=== PATIENT | male | born 1975 | race Caucasian/White ===

== ENCOUNTER 2021-06-23 21:20 | Emergency (ER) | payer BC ==
--- NOTE | 2021-06-23 21:48 | EDM.PDOC ---
ED HPI GENERAL MEDICAL PROBLEM - General Chief Complaint: Chest Pain Stated Complaint: INTERMITTENT CHEST PAIN/SOB/HEART RACING Time Seen by Provider: 06/23/21 21:46 Source of Information: Reports: Patient History Limitations: Reports: No Limitations - History of Present Illness INITIAL COMMENTS - FREE TEXT/NARRATIVE: 46-year-old male presents to the ED with recurrent bouts of central chest pressure discomfort radiating up into his anterior throat off and on since May 21. Tonight it happened after work when he got home. He states he became aware of feeling mildly short of breath with a fluttery feeling in his chest and abdomen with pressure in his central chest radiating up into his throat. Associated dizziness lightheadedness and he had to hang onto the fridge as he was not sure that he was not going to pass out. The symptoms come and go over the last 45 minutes and now he feels pretty well back to normal. ECG done by the triage nurse reveals sinus rhythm at 88/min with frequent supraventricular beats combination of PJCs and PACs. He had this on examination in the ED as well. However he no longer feels the central chest discomfort shortness of breath or feeling of racing heart in his neck. Of note he is a never smoker. Very uses very little caffeinated products does not drink coffee. Has a Mountain Dew once a day on average. Denies use of any street drugs. Alcohol is very rare use as well. Onset Date: 06/21/21 (Event occurred 2 days ago and lasted for short duration. Second event occurred tonight and lasted for about 45 minutes to 50 minutes.) Duration: Minutes:, Intermittent (At time of exam he feels back to normal), Waxing/Waning, Other (Is better) Location: Reports: Chest (Chest discomfort rating up into the anterior throat and neck. So she with feeling dizzy lightheaded and mildly short of breath.) Quality: Reports: Other (Central chest discomfort described as a pressure ache. Associated shortness of breath and dizzy feeling.) Severity: Moderate Improves with: Reports: Other (Is come and go.) Worsens with: Reports: None Context: Reports: Other (Times he was sitting in his easy chair with his iPad on his abdomen when these events started both Monday and again ). Denies: Activity, Exercise, Lifting, Sick Contact, Trauma Associated Symptoms: Reports: Chest Pain, Diaphoresis, Shortness of Breath, Weakness, Other (Dizziness and feeling of near syncope). Denies: Confusion, Cough (Chest discomfort rating up into her throat and neck), cough w sputum, Fever/Chills, Headaches, Loss of Appetite, Nausea/Vomiting (Did have some diaphoresis with the spell that occurred tonight.), Rash, Seizure Treatments KENNEL HAND: Reports: Other (see below) (None.) Middle Chest Pain Score (Numeric/FACES): 6 - Related Data Allergies Allergy/AdvReac Type Severity Reaction Status Date / Time No Known Allergies Allergy Verified 06/23/21 21:43 Home Meds: Home Meds Levothyroxine [Synthroid] 100 mcg PO ACBREAKFAST #60 tab 06/23/21 [Rx] Past Medical History Cardiovascular History: Reports: Other (See Below) (He has hypertriglyceridemia and is on fenofibrate tablets twice daily and omega-3. Apparently his triglycerides came down from 1000 to around 200.) Social & Family History - Tobacco Use Tobacco Use Status *Q: Never Tobacco User - Living Situation & Occupation Living situation: Reports: Occupation: Employed ED ROS GENERAL - Review of Systems Review Of Systems: See Below Constitutional: Reports: Decreased Appetite (Feel like eating any supper tonight after he got home from work). Denies: Fever, Chills, Malaise, Weakness, Fatigue, Weight Loss HEENT: Reports: No Symptoms Respiratory: Reports: Shortness of Breath. Denies: Wheezing, Pleuritic Chest Pain, Cough, Sputum Cardiovascular: Reports: Chest Pain (Chest discomfort rating up into his throat associate with feeling of his heart racing tonight.), Lightheadedness (Lightheaded and dizzy like he might pass out transiently), Palpitations (Aware of palpitations or fine flutter and is neck when he tried to palpate his carotid arteries tonight.). Denies: Blood Pressure Problem, Claudication, Dyspnea on Exertion, Orthopnea Endocrine: Reports: No Symptoms GI/Abdominal: Reports: No Symptoms : Reports: No Symptoms Musculoskeletal: Reports: No Symptoms Skin: Reports: No Symptoms Neurological: Reports: No Symptoms Psychiatric: Reports: No Symptoms Hematologic/Lymphatic: Reports: No Symptoms Immunologic: Reports: No Symptoms ED EXAM, GENERAL - Physical Exam Exam: See Below Exam Limited By: No Limitations General Appearance: Alert, WD/WN, No Apparent Distress, Other (Temperature is 36.6 degrees. Heart rate was 103 and irregularly irregular with frequent PACs and PJCs on the monitor. Respiratory is 14 with O2 sats of 97% room air. BP is 157/86 initially. It is currently 131/92.) Eye Exam: Bilateral Eye: Normal Inspection (Blepharal pallor or scleral icterus), PERRL Throat/Mouth: Normal Inspection, Normal Lips, Normal Teeth, Normal Oropharynx Head: Atraumatic, Normocephalic Neck: Normal Inspection, Supple, Non-Tender, Full Range of Motion. No: Lymphadenopathy (L), Lymphadenopathy (R), Thyromegaly Respiratory/Chest: No Respiratory Distress, Lungs Clear, Normal Breath Sounds, No Accessory Muscle Use Cardiovascular: Normal Peripheral Pulses, No Edema, No Gallop, No Murmur, No Rub, Irregularly Irregular (Ravi premature atrial contractions and PJCs.). No: Regular Rate, Rhythm Peripheral Pulses: 3+: Carotid (L), Carotid (R), Posterior Tibial (L), Posterior Tibial (R), Dorsalis Pedis (L), Dorsalis Pedis (R) GI/Abdominal: Normal Bowel Sounds, Soft, Non-Tender, No Organomegaly, No Abnormal Bruit, No Mass, Pelvis Stable, Other (Surgical scars) (Male) Exam: No Hernia Back Exam: Normal Inspection, Full Range of Motion. No: CVA Tenderness (L), CVA Tenderness (R) Extremities: Normal Inspection, Normal Range of Motion, Non-Tender, No Pedal Edema Neurological: Alert, Oriented, CN II-XII Intact, Normal Cognition Psychiatric: Normal Affect, Normal Mood Skin Exam: Warm, Dry, Intact, Normal Color, No Rash #1 Interpretation EKG Date: 06/23/21 Time: 21:31 Rhythm: NSR Rate (Beats/Min): 88 (Current ectopic beat is a PJCs and PACs) [place]: Normal P-Wave: Present (Mildly prominent in lead II consider left atrial hypertrophy) QRS: Other (Early R wave transition V2 consider right ventricular perjury versus septal hypertrophy pattern) ST-T: Other (Diffuse early repolarization pattern) QT: Prolonged (Mildly prolonged) EKG Interpretation Comments: Borderline ECG Course - Vital Signs Last Recorded V/S: Last Vital Signs Temp 36.6 C 06/23/21 21:39 Pulse 103 H 06/23/21 21:39 Resp 14 06/23/21 21:39 BP 157/86 H 06/23/21 21:39 Pulse Ox 97 06/23/21 21:39 - Orders/Labs/Meds Orders: Active Orders 24 hr Category Date Time Status Chest 1V Frontal [CR] Stat Exams 06/23/21 22:04 Taken Labs: Laboratory Tests 06/23/21 06/23/21 06/23/21 Range/Units 22:17 22:17 22:17 WBC 8.93 (4.23-9.07) K/mm3 RBC 4.84 (4.63-6.08) M/mm3 Hgb 15.0 (13.7-17.5) gm/dl Hct 43.4 (40.1-51.0) % MCV 89.7 (79.0-92.2) fl MCH 31.0 (25.7-32.2) pg MCHC 34.6 (32.2-35.5) g/dl RDW Std Deviation 38.8 (35.1-43.9) fL Plt Count 205 (163-337) K/mm3 MPV 9.3 L (9.4-12.3) fl Neut % (Auto) 59.9 (34.0-67.9) % Lymph % (Auto) 27.2 (21.8-53.1) % Luna % (Auto) 7.2 (5.3-12.2) % Eos % (Auto) 4.9 (0.8-7.0) Baso % (Auto) 0.2 (0.1-1.2) % Neut # (Auto) 5.35 (1.78-5.38) K/mm3 Lymph # (Auto) 2.43 (1.32-3.57) K/mm3 Luna # (Auto) 0.64 (0.30-0.82) K/mm3 Eos # (Auto) 0.44 (0.04-0.54) K/mm3 Baso # (Auto) 0.02 (0.01-0.08) K/mm3 PT 10.9 (9.7-12.0) SECONDS INR 1.02 APTT 24.6 (21.7-31.4) SECONDS Sodium 141 (136-145) mEq/L Potassium 4.2 (3.5-5.1) mEq/L Chloride 106 (98-107) mEq/L Carbon Dioxide 29 (21-32) mEq/L Anion Gap 10.2 (5-15) BUN 19 H (7-18) mg/dL Creatinine 1.3 (0.7-1.3) mg/dL Est Cr Clr Drug Dosing TNP Estimated GFR (MDRD) 59 (>60) mL/min BUN/Creatinine Ratio 14.6 (14-18) Glucose 105 H (70-99) mg/dL Calcium 8.4 L (8.5-10.1) mg/dL Magnesium 2.0 (1.8-2.4) mg/dL Total Bilirubin 0.4 (0.2-1.0) mg/dL AST 44 H (15-37) U/L ALT 106 H (16-63) U/L Alkaline Phosphatase 41 L (46-116) U/L CK-MB (CK-2) 1.3 (0-3.6) ng/ml Troponin I < 0.017 (0.00-0.056) ng/mL C-Reactive Protein <0.2 (<1.0) mg/dL NT-Pro-B Natriuret Pep (0-125) pg/mL Total Protein 6.6 (6.4-8.2) g/dl Albumin 3.9 (3.4-5.0) g/dl Globulin 2.7 gm/dL Albumin/Globulin Ratio 1.4 (1-2) TSH 3rd Generation 6.078 H (0.358-3.74) uIU/mL 06/23/21 Range/Units 22:17 WBC (4.23-9.07) K/mm3 RBC (4.63-6.08) M/mm3 Hgb (13.7-17.5) gm/dl Hct (40.1-51.0) % MCV (79.0-92.2) fl MCH (25.7-32.2) pg MCHC (32.2-35.5) g/dl RDW Std Deviation (35.1-43.9) fL Plt Count (163-337) K/mm3 MPV (9.4-12.3) fl Neut % (Auto) (34.0-67.9) % Lymph % (Auto) (21.8-53.1) % Luna % (Auto) (5.3-12.2) % Eos % (Auto) (0.8-7.0) Baso % (Auto) (0.1-1.2) % Neut # (Auto) (1.78-5.38) K/mm3 Lymph # (Auto) (1.32-3.57) K/mm3 Luna # (Auto) (0.30-0.82) K/mm3 Eos # (Auto) (0.04-0.54) K/mm3 Baso # (Auto) (0.01-0.08) K/mm3 PT (9.7-12.0) SECONDS INR APTT (21.7-31.4) SECONDS Sodium (136-145) mEq/L Potassium (3.5-5.1) mEq/L Chloride (98-107) mEq/L Carbon Dioxide (21-32) mEq/L Anion Gap (5-15) BUN (7-18) mg/dL Creatinine (0.7-1.3) mg/dL Est Cr Clr Drug Dosing Estimated GFR (MDRD) (>60) mL/min BUN/Creatinine Ratio (14-18) Glucose (70-99) mg/dL Calcium (8.5-10.1) mg/dL Magnesium (1.8-2.4) mg/dL Total Bilirubin (0.2-1.0) mg/dL AST (15-37) U/L ALT (16-63) U/L Alkaline Phosphatase (46-116) U/L CK-MB (CK-2) (0-3.6) ng/ml Troponin I (0.00-0.056) ng/mL C-Reactive Protein (<1.0) mg/dL NT-Pro-B Natriuret Pep 231 H (0-125) pg/mL Total Protein (6.4-8.2) g/dl Albumin (3.4-5.0) g/dl Globulin gm/dL Albumin/Globulin Ratio (1-2) TSH 3rd Generation (0.358-3.74) uIU/mL - Radiology Interpretation Free Text/Narrative:: 46-year-old male presents to the ED with 2 separate bouts over the last 2 days of feeling central chest discomfort rating up into his throat and neck with associated mild dyspnea and lightheadedness. Both times is occurred at rest after work on Monday night May 21 and again tonight. Tonight he felt woozy and lightheaded in the shower and felt for a while that he might faint. He was aware of his heart racing when he palpated his carotid artery in his neck. Patient has not experienced any the symptoms before. He is not use energy drinks or any highly caffeinated products. Examination reveals frequent premature atrial contractions and occasional PJCs on the monitor. Otherwise he is sinus rhythm at 88/min with no signs of ischemia on ECG. At the time I seen him he was relatively asymptomatic. Plan routine labs will be done in 1 view chest x-ray. He will likely require Holter monitor for 2 to 3 days as he appears to have a tachyarrhythmia coming from the upper chambers of the heart - Re-Assessments/Exams Free Text/Narrative Re-Assessment/Exam: 06/23/21 22:52 chest x-ray done portably reveals mild cardiomegaly. Mediastinum is normal. Visualized lung waggoner are clear. Slightly hyperinflated lung waggoner bilaterally. 06/23/21 22:53 White count is 8.93 with a auto differential of 60% neutrophils. Hemoglobin is 15.0 with hematocrit of 43.4 platelet count is 205,000 PT is 10.9 with an INR of 1.02 PTT is 24.6 06/23/21 23:35 White count is 8.93. Auto differential shows 60% neutrophils. Hemoglobin is 15.0 with hematocrit of 43.4 platelet count is 205,000 PT is 10.9 with an INR of 1.02 PTT is 24.6. Sodium is 141 with a potassium of 4.2 chloride 106 with a bicarb of 29 anion gap is 10.2. BUN is 19 with a creatinine of 1.3. Glucose is 105 with a calcium slightly low at 8.4. Magnesium is 2.0 total bilirubin is 0.4 AST elevated at 44 and ALT is 106. Alkaline phosphatase is 41. CK-MB fraction is 1.3 with a troponin I of less than 0.017. C-reactive protein is less than 0.2. BNP is 231 slightly elevated. Total protein is 6.6 with an albumin fraction of 3.9. TSH is elevated at 6.078 indicating that he has subclinical hypothyroidism. His Holter monitor results will be forwarded to the emergency room since he does not have a primary care provider here in [place]. He resides in [place]. Departure - Departure Time of Disposition: 23:58 Disposition: Home, Self-Care 01 Reason for Transfer *Q: Other Condition: Fair Clinical Impression: Irregular heartbeat, Hypothyroidism (acquired) Prescriptions: Levothyroxine [Synthroid] 100 mcg PO ACBREAKFAST #60 tab Instructions: Hypothyroidism Referrals: PCP,Not In Area [Primary Care Provider] - Forms: ED Department Discharge Additional Instructions: Evaluation in the emergency room angelique in regards to development of central chest discomfort rating up into her throat associate with some mild shortness of breath and dizziness that lasted up to 45 minutes. Similar type event 2 days ago but did not last as long and was not quite as severe. History suggest that when you placed your fingers on your neck or carotid artery just diffusion that she could feel your heart beating irregularly and fast. ECG done through the emergency room does reveal increased abnormal beats from the top part of the heart which we call premature atrial contractions and premature junctional contractions. These tend to be a nuisance and are usually of no consequence unless they come fairly frequently and together as they could make your heart go as fast as 150-180 beats a minute which would make you lightheaded dizzy and short of breath. It could also make you have central chest discomfort transiently. Lab work done angelique did not reveal any evidence of heart related illness. Your BNP which is a measuring stick for how well the pump is working is minimally elevated at 231 with normal being up to 150 in our lab. This means that some of the fluid could have backed up in your lungs if the heart was going to fast for period of time and will get better on its own. The only other finding on lab work angelique was a underactive thyroid gland which we call subclinical hypothyroidism. Her TSH today was 6.00 and that should be less than 3.7. It it is felt therefore that you need a thyroid hormone replacement tablet daily called levothyroxine starting with 100 mcg tablet once daily usually first thing in the morning at least a half an hour before you have eaten any food or at bedtime if you have not eaten any time within half hour before this. You will need repeat thyroid function studies i.e. a TSH and a free T4 in about 8 weeks time and dose may well have to be adjusted upwards to achieve a TSH of around 2.0. In regards to the irregular heartbeat the plan will be to place you on a Holter monitor which will measure your heartbeats for the next 48 hours or so and then be turned into a computer to interpret once you bring it back to the emergency room Monday this week. It would usually take 3 to 4 days to get an answer on the recording. Of course if you have any further episodes similar to tonight please present back to the emergency room. Sepsis Event Note (ED) - Focused Exam Vital Signs: Vital Signs Temp Pulse Resp BP Pulse Ox 06/23/21 21:39 36.6 C 103 H 14 157/86 H 97 - My Orders Last 24 Hours: My Active Orders 06/23/21 22:04 Chest 1V Frontal [CR] Stat - Assessment/Plan Last 24 Hours: My Active Orders 06/23/21 22:04 Chest 1V Frontal [CR] Stat
--- NOTE | 2021-06-24 07:21 | CR ---
Chest: Frontal view of the chest was obtained. Comparison: No prior chest imaging is available. Heart size and mediastinum are normal. Lungs are clear with no acute parenchymal change. No acute osseous abnormality is appreciated. Impression: 1. Nothing acute is seen on frontal chest x-ray. Diagnostic code #1
== END 2021-06-24 00:11 | disposition home or self-care (01) ==
LOC: JD.ED 21:20
DX: R00.8 Other abnormalities of heart beat (principal); E03.9 Hypothyroidism, unspecified; Z79.899 Other long term (current) drug therapy
CPT/HCPCS: 36415; 71045; 71045-26; 80053; 82553; 83735; 83880; 84443; 84484; 85025; 85610; 85730; 86140; 93005; 93010; 93225; 93226; 99284; 99285-25